=== PATIENT | female | born 1995 | race African-American/Black ===

== ENCOUNTER 2018-06-19 13:07 | Emergency (ER) | payer BC ==
[~2018-06-19] VITALS: Ht 152.4 cm; Wt 72.6 kg
[~2018-06-19 13:07] MED LIST: PNV1TABL25 PO
[2018-06-19] MEDS ORDERED: IV NORMAL SALINE 1,000ML 1,000 ML IV SCH (13:37)
--- NOTE | 2018-06-19 14:02 | PHYS DOC ---
Past History Past Medical History: No Pertinent History Past Surgical History: No Surgical History Smoking: Cigarettes, Less than 1pk/day Alcohol Use: None Drug Use: None Adult General Chief Complaint Chief Complaint: ABDOMINAL PAIN [facility] HPI Patient is a 23 year old female who presents with complaining of sudden onset of right lower quadrant pain. Patient states she woke up at 2 AM because of right lower quadrant pain As a constant and sharp pain without radiation that gradually getting worse. Patient denies nausea, diarrhea, urinary symptoms, fever and chills. Patient complaining of anorexia and denies history of the same pain. Patient states she took Tylenol at 3 AM and rated her pain 9/10. Patient states she had Depo shot in February 2018 and needs another Depo shot and denies having menstruation. Review of Systems Review of Systems Constitutional: Denies fever or chills [] Eyes: Denies change in visual acuity, redness, or eye pain [] HENT: Denies nasal congestion or sore throat [] Respiratory: Denies cough or shortness of breath [] Cardiovascular: No additional information not addressed in HPI [] GI: Reports abdominal pain, anorexia, denies nausea, vomiting, bloody stools or diarrhea [] : Denies dysuria or hematuria [] Musculoskeletal: Denies back pain or joint pain [] Integument: Denies rash or skin lesions [] Neurologic: Denies headache, focal weakness or sensory changes [] Endocrine: Denies polyuria or polydipsia [] All other systems were reviewed and found to be within normal limits, except as documented in this note. Allergies Allergies Allergies Coded Allergies Type Severity Reaction Last Updated Verified strawberry Allergy Severe Anaphylaxis 12/08/14 Yes Physical Exam Physical Exam Constitutional: Well developed, well nourished, moderate acute distress, non- toxic appearance. [] HENT: Normocephalic, atraumatic, oropharynx dry, no oral exudates, nose normal. [] Eyes: PERRLA, EOMI, conjunctiva normal, no discharge. [] Neck: Normal range of motion, no tenderness, supple, no stridor. [] Cardiovascular:Heart rate regular rhythm, no murmur [] Lungs & Thorax: Bilateral breath sounds clear to auscultation [] Abdomen: Bowel sounds normal, soft, right lower quadrant tenderness and rebound tenderness with positive McBurney sign, no masses, no pulsatile masses. [] Skin: Warm, dry, no erythema, no rash. [] Back: No tenderness, no CVA tenderness. [] Extremities: No tenderness, no cyanosis, no clubbing, ROM intact, no edema. [] Neurologic: Alert and oriented X 3, normal motor function, normal sensory function, no focal deficits noted. [] Psychologic: Affect normal, judgement normal, mood normal. [] Current Patient Data Lab Results Laboratory Tests Test 06/19/18 13:39 POC Urine HCG, Qualitative hcg negative (Negative) EKG EKG [] Radiology/Procedures Radiology/[place] [address] IMAGING REPORT Signed PATIENT: DONAVAN GUTIERRES ACCOUNT: [id number] : 1995 LOCATION: ER AGE: 23 SEX: F EXAM STATUS: REG ER ORD. PHYSICIAN: MARIANNE PEREZ MD REASON: right lower quadrant pain PROCEDURE: CT ABD PELV W/ IV CONTRST ONLY PQRS Compliance statement: One or more of the following individualized dose reduction techniques were utilized for this examination: 1. Automated exposure control. 2. Adjustment of the mA and/or kV according to patient size. 3. Use of iterative reconstruction technique. Indication:Right lower quadrant pain. TECHNIQUE: CT abdomen and pelvis with IV contrast with multiplanar reformats. COMPARISON: None FINDINGS: Heart is normal in size. No pericardial or pleural effusion. Clear lung bases. Few scattered low attenuating lesions are seen in the liver, the largest in segment 2 measuring 5 mm. Spleen, bladder, pancreas, adrenals within normal limits. 2 mm nonobstructing stone in the right kidney. No hydronephrosis. No free pelvic fluid or ascites. Appendix is dilated measuring 8 mm with mucosal enhancement and mild periappendiceal inflammatory changes. No appendicolith. No enlarged retroperitoneal or pelvic adenopathy. No bowel obstruction. Anteverted uterus. Urinary bladder within normal limits. No pneumoperitoneum. No suspicious bony lesion. IMPRESSION: 1. Acute appendicitis. 2. Nonobstructing 2 mm right renal stone. Electronically signed by: Marino Couch DO (06/19/2018 3:21 PM) [facility] [place] DICTATED AND SIGNED BY: MARINO COUCH DO DATE: 06/19/18 1516 CC: MARIANNE PEREZ MD; PAUL MUHAMMAD ~ Course & Med Decision Making Course & Med Decision Making Pertinent Labs and Imaging studies reviewed. (See chart for details) Evaluation of patient in ER showed 23-year-old female patient with complaining of constant right lower quadrant pain since 80 morning and anorexia. Patient had nausea while she was in emergency room and had 1 episodes of vomiting daily urine CT. Patient had tenderness and rebound tenderness right lower quadrant with positive McBurney sign. Patient didn't have leukocytosis and CT of abdomen and pelvis showed acute appendicitis. On-call surgeon at [facility] Dr Oro consulted at [address] Tavarez on-call hospitalist accepted transfer to [facility] at 1551. Dragon Disclaimer Dragon Disclaimer This electronic medical record was generated, in whole or in part, using a voice recognition dictation system. Departure Departure: Impression: Primary Impression: Acute appendicitis Disposition: 02 XFER [facility] ([facility]) Condition: IMPROVED Referrals: PAUL MUHAMMAD (PCP) MARIANNE PEREZ MD Jun 19, 2018 14:02
[2018-06-19 14:07] LABS: BILIRUBIN,URINE NEG (NEG); CLARITY,URINE CLEAR; COLOR,URINE YELLOW; GLUCOSE,URINE NEG (NEG); NITRITE,URINE NEG (NEG); UROBILINOGEN,URINE 0.2 mg/dL (0.2 mg/dL)
[2018-06-19] MEDS ORDERED: KETOROLAC 30 MG/ML VIAL. IV ONE (14:15)
[2018-06-19] MEDS ORDERED: IOHEXOL 300 MG/ML 75 ML VIAL. IV ONE (14:15)
[2018-06-19 14:16] LABS: BASO % 1 % (0-3); EOS # 0.2 x10^3/uL (0.0-0.7); EOS % 3 % (0-3); HEMATOCRIT 41.7 % (36.0-47.0); HEMOGLOBIN 13.9 g/dL (12.0-15.5); LYMPH # 1.2 x10^3/uL (1.0-4.8); LYMPH % 15 % (24-48); MEAN CORPUSCULAR HEMOGLOBIN 28 pg (25-35); MEAN CORPUSCULAR HGB CONC 33 g/dL (31-37); MEAN CORPUSCULAR VOLUME 83 fL (79-100); MONO # 0.7 x10^3/uL (0.0-1.1); MONO % 9 % (0-9); NEUT % 73 % (31-73); PLATELET COUNT 333 x10^3/uL (140-400); RED BLOOD COUNT 5.01 x10^6/uL (3.50-5.40); RED CELL DISTRIBUTION WIDTH 14.6 % (11.5-14.5); WHITE BLOOD COUNT 8.1 x10^3/uL (4.0-11.0)
[2018-06-19] MEDS ORDERED: ONDANSETRON PF 4 MG/2 ML VIAL. ONE (14:19)
[2018-06-19 14:28] LABS: ALBUMIN 4.2 g/dL (3.4-5.0); CREATININE 0.8 mg/dL (0.6-1.0); GFR 105.8; POTASSIUM 3.9 mmol/L (3.5-5.1); TOTAL BILIRUBIN 0.4 mg/dL (0.2-1.0); TOTAL PROTEIN 8.6 g/dL (6.4-8.2)
[2018-06-19] MEDS ORDERED: ONDANSETRON PF 4 MG/2 ML VIAL. IV ONE (14:30)
[2018-06-19] MEDS ORDERED: IV NORMAL SALINE 1,000ML 1,000 ML IV ONE (15:15)
--- NOTE | 2018-06-19 15:26 | RAD ---
PQRS Compliance statement: One or more of the following individualized dose reduction techniques were utilized for this examination: 1. Automated exposure control. 2. Adjustment of the mA and/or kV according to patient size. 3. Use of iterative reconstruction technique. Indication:Right lower quadrant pain. TECHNIQUE: CT abdomen and pelvis with IV contrast with multiplanar reformats. COMPARISON: None FINDINGS: Heart is normal in size. No pericardial or pleural effusion. Clear lung bases. Few scattered low attenuating lesions are seen in the liver, the largest in segment 2 measuring 5 mm. Spleen, bladder, pancreas, adrenals within normal limits. 2 mm nonobstructing stone in the right kidney. No hydronephrosis. No free pelvic fluid or ascites. Appendix is dilated measuring 8 mm with mucosal enhancement and mild periappendiceal inflammatory changes. No appendicolith. No enlarged retroperitoneal or pelvic adenopathy. No bowel obstruction. Anteverted uterus. Urinary bladder within normal limits. No pneumoperitoneum. No suspicious bony lesion. IMPRESSION: 1. Acute appendicitis. 2. Nonobstructing 2 mm right renal stone. Electronically signed by: Marino Couch DO (06/19/2018 3:21 PM) [facility]
[2018-06-19] MEDS ORDERED: IV NORMAL SALINE 50ML 50 ML ONE (15:44)
[2018-06-19] MEDS ORDERED: PIPERACILLIN/TAZOBACTAM 3.375 GM VIAL IV ONE (15:44)
[2018-06-19] MEDS ORDERED: MORPHINE SULFATE 4 MG/ML DISP.SYRIN. IV ONE (15:45)
[2018-06-19] MEDS ORDERED: PIPERACILLIN/TAZOBACTAM 3.375 GM in IV NORMAL SALINE 50ML 50 ML IV ONE (15:45)
[2018-06-19 16:10] VITALS: BP 110/60
== END 2018-06-19 16:18 | disposition short-term general hospital (02) ==
LOC: ER 13:07
DX: K35.80 Unspecified acute appendicitis (principal); R11.2 Nausea with vomiting, unspecified; N20.0 Calculus of kidney; F17.210 Nicotine dependence, cigarettes, uncomplicated; Z91.018 Allergy to other foods
CPT/HCPCS: 36415; 74177; 80053; 81003; 81025; 85025; 96361; 96365; 96375; 99285; J1885; J2270; J2405; J2543; J7030

== ENCOUNTER 2021-01-08 17:01 | Emergency (ER) | payer SELFPAY ==
[~2021-01-08] VITALS: Ht 180.3 cm; Wt 70.4 kg
[2021-01-08 17:13] VITALS: BP 126/67
--- NOTE | 2021-01-08 18:13 | PHYS DOC ---
Past History Past Medical History: Endometriosis (ELMIRA CRANDALL DO) Past Surgical History: No Surgical History (ELMIRA CRANDALL DO) Smoking: Cigarettes, Less than 1pk/day Alcohol Use: Rarely Drug Use: None (ELMIRA CRANDALL DO) Adult General Chief Complaint Chief Complaint: COUGH HPI HPI Patient is a 25-year-old female presenting for upper respiratory symptoms. 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 She is unvaccinated against COVID-19. Reports classic sinus headache, nasal congestion, rhinorrhea and postnasal drip with a nonproductive cough. Denies fever. Reports at times it is hard to swallow and feels that her tonsils are enlarged (ELMIRA CRANDALL DO) Review of Systems Review of Systems Fourteen body systems of review of systems have been reviewed. See HPI for pertinent positives and negative responses, other hernandez all other systems are negative, non-pertinent or non-contributory (ELMIRA CRANDALL DO) Allergies Allergies Allergies Coded Allergies Type Severity Reaction Last Updated Verified strawberry Allergy Severe Anaphylaxis 12/08/14 Yes (ELMIRA CRANDALL DO) Physical Exam Physical Exam General: Appears well, non toxic, and comfortable Skin: Warm, dry. Normal for ethnicity. HEENT: Atraumatic. PERRLA. Rhinorrhea and congestion. Nasal turbinates boggy b/l. Moist mucous membranes. Uvula midline. Maintaining secretions. No phonation changes. Tonsils 2+ without exudate Neck: Trachea midline. Normal ROM. No stridor. Respiratory: Normal WOB. CTAB w/o w/r/r. No tachypnea. Cardiovascular: Regular rate and rhythm. Normal peripheral perfusion. Abdomen: Soft. Non tender. No distension. Back: Normal ROM. Musculoskeletal: No swelling or deformity. Neuro: Alert and oriented x 4. MAEE. Lymph: No cervical LAD. Psych: Normal affect and mood. (ELMIRA CRANDALL DO) Current Patient Data Vital Signs Vital Signs Date Time Temp Pulse Resp B/P (MAP) Pulse Ox O2 Delivery O2 Flow Rate FiO2 01/08/21 17:13 98.7 88 16 126/67 99 (ELMIRA CRANDALL DO) EKG EKG [] (ELMIRA CRANDALL DO) Radiology/Procedures Radiology/Procedures [] (ELMIRA CRANDALL DO) Radiology/Procedures [address] [address] IMAGING REPORT Signed PATIENT: DONAVAN GUTIERRES ACCOUNT: [id number] : 1995 LOCATION: ER AGE: 25 SEX: F EXAM STATUS: REG ER ORD. PHYSICIAN: ELMIRA CRANDALL DO REASON: COUGH PROCEDURE: CHEST AP ONLY EXAMINATION: Chest radiograph. VIEWS: Single view COMPARISON: None INDICATION:25 years, Female, cough. FINDINGS: Normal cardiomediastinal silhouette. No focal consolidation. No pleural effusion or pneumothorax. No acute osseous process. IMPRESSION: No acute cardiopulmonary process. Electronically signed by: Pallavi Yepez MD (01/08/2021 7:13 PM) [facility] DI[facility]ATED AND SIGNED BY: PALLAVI YEPEZ MD DATE: 01/08/211911 CC: ELMIRA CRANDALL DO; MELODY HUYNH MD; PCP,NO ~MTH0 [address] [address] IMAGING REPORT Signed PATIENT: DONAVAN GUTIERRES ACCOUNT: [id number] : 1995 LOCATION: ER AGE: 25 SEX: F EXAM STATUS: REG ER ORD. PHYSICIAN: ELMIRA CRANDALL DO REASON: COUGH PROCEDURE: CHEST AP ONLY EXAMINATION: Chest radiograph. VIEWS: Single view COMPARISON: None INDICATION:25 years, Female, cough. FINDINGS: Normal cardiomediastinal silhouette. No focal consolidation. No pleural effusion or pneumothorax. No acute osseous process. IMPRESSION: No acute cardiopulmonary process. Electronically signed by: Pallavi Yepez MD (01/08/2021 7:13 PM) [facility] DICTATED AND SIGNED BY: PALLAVI YEPEZ MD DATE: 01/08/211911 CC: ELMIRA CRANDALL DO; MELODY HUYNH MD; PCP,NO ~MTH0 [address] [address] IMAGING REPORT Signed PATIENT: DONAVAN GUTIERRES ACCOUNT: [id number] : 1995 LOCATION: ER AGE: 25 SEX: F EXAM STATUS: REG ER ORD. PHYSICIAN: ELMIRA CRANDALL DO REASON: COUGH PROCEDURE: CHEST AP ONLY EXAMINATION: Chest radiograph. VIEWS: Single view COMPARISON: None INDICATION:25 years, Female, cough. FINDINGS: Normal cardiomediastinal silhouette. No focal consolidation. No pleural effusion or pneumothorax. No acute osseous process. IMPRESSION: No acute cardiopulmonary process. Electronically signed by: Pallavi Yepez MD (01/08/2021 7:13 PM) [facility] DICTATED AND SIGNED BY: PALLAVI YEPEZ MD DATE: 01/08/211911 CC: ELMIRA CRANDALL DO; MELODY HUYNH MD; PCP,NO ~MTH0 0 (MELODY HUYNH MD) Heart Score C/O Chest Pain: No Risk Factors: Risk Factors: DM, Current or recent (<one month) smoker, HTN, HLP, family history of CAD, obesity. Risk Scores: Risk Factors: DM, Current or recent (<one month) smoker, HTN, HLP, family history of CAD, obesity. (ELMIRA CRANDALL DO) Course & Med Decision Making Course & Med Decision Making ABCs unremarkable. Centor criteria 2. Joint decision made to swab for strep Covid and RSV. At this time in care, patient case transferred over to oncoming physician as my shift was ending. Comprehensive signout given to oncoming physician. Please defer to their documentation regarding future care of patient while in ER setting (ELMIRA CRANDALL DO) Course & Med Decision Making See Dr. Crandall chart for details. Impression: 1. Upper Airway infection (MELODY HUYNH MD) Dragon Disclaimer Dragon Disclaimer This electronic medical record was generated, in whole or in part, using a voice recognition dictation system. (ELMIRA CRANDALL DO) Departure Departure: Impression: Primary Impression: Person under investigation for COVID-19 Disposition: HOME / SELF CARE / HOMELESS Condition: STABLE Referrals: PCP,NO (PCP) Scripts Azithromycin (ZITHROMAX) 250 Mg Tablet 250 MG PO DAILY for ANTI-BIOTIC, #5 TAB 0 Refills Prov: MELODY HUYNH MD 01/08/21 Prednisone (PREDNISONE) 50 Mg Tablet 50 MG PO DAILY for reactive air way for 5 Days, #5 TAB Prov: MELODY HUYNH MD 01/08/21 ELMIRA CRANDALL DO Jan 08, 2021 18:12 MELODY HUYNH MD Jan 08, 2021 20:14
--- NOTE | 2021-01-08 19:15 | RAD ---
EXAMINATION: Chest radiograph. VIEWS: Single view COMPARISON: None INDICATION:25 years, Female, cough. FINDINGS: Normal cardiomediastinal silhouette. No focal consolidation. No pleural effusion or pneumothorax. No acute osseous process. IMPRESSION: No acute cardiopulmonary process. Electronically signed by: Manas Yepez MD (01/08/2021 7:13 PM) [facility]
[2021-01-08] MEDS: ALBUTEROL SULFATE 8GM INHALER. INH ONE ×2 (22:10→23:42)
[2021-01-08] MEDS: AZITHROMYCIN 250 MG TABLET. PO ONE ×2 (22:10→23:42)
[2021-01-08] MEDS: predniSONE 10 MG TABLET. PO ONE ×2 (22:10→23:41)
[2021-01-08] MEDS ORDERED: PRED50TA PO (22:11)
[2021-01-08] MEDS ORDERED: AZIT250T PO (22:11)
== END 2021-01-08 22:20 | disposition home or self-care (01) ==
LOC: ER 17:01
DX: J06.9 Acute upper respiratory infection, unspecified (principal); F17.210 Nicotine dependence, cigarettes, uncomplicated; Z20.822 Contact with and (suspected) exposure to COVID-19; Z91.018 Allergy to other foods
CPT/HCPCS: 71045; 87070; 87426; 87880; 94640; 99284; C9803; J7512; U0003; 94664